=== PATIENT | female | born 1940 | race Caucasian/White ===

== ENCOUNTER 2017-04-16 07:02 | Day surgery (SDC) | payer MEDICARE, BC ==
[2017-04-16] MEDS ORDERED: Propofol 200 MG/20 ML SDV ONE (07:26)
[2017-04-16] MEDS ORDERED: Midazolam 1 MG/ML 2 ML SDV ONE (07:26)
[2017-04-16] MEDS ORDERED: fentaNYL 100 MCG/2 ML SDV ONE (07:26)
[2017-04-16] MEDS ORDERED: Sodium Chloride 0.9% 1,000 ML IV SCH (08:00)
[2017-04-16 10:04] VITALS: BP 119/75
--- NOTE | 2017-04-16 14:31 | OR ---
DATE OF PROCEDURE: 04/16/2017 PROCEDURE: Colonoscopy. FINDINGS: 1. Diverticulosis, moderate. 2. No other gross abnormalities. COMPLICATIONS: None. 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 ANESTHESIA: MAC. PREOPERATIVE DIAGNOSIS: Screening colonoscopy. POSTOPERATIVE DIAGNOSIS: Screening colonoscopy. RISKS: Risks, benefits, alternatives, limitations including, but not limited to infection, bleeding, and perforation were explained to the patient. PROCEDURE IN DETAIL: The patient was placed in the left lateral decubitus position. A digital rectal exam was performed without abnormality. Scope was introduced and advanced atraumatically to the ileocecal valve. The scope was brought back to the ascending, transverse, descending colon, and retroflexed. The patient had diverticulosis, which was moderate, limited to sigmoid colon. No other abnormalities were noted. No old or new blood. The patient tolerated the procedure well. Star Miller MD /[id number]
== END 2017-04-16 10:39 | disposition home or self-care (01) ==
LOC: JP.SDS 07:02
PROVIDERS: ATTEND Surgery
DX: Z12.11 Encounter for screening for malignant neoplasm of colon (principal); K57.30 Diverticulosis of large intestine without perforation or abscess without bleeding; I10 Essential (primary) hypertension; K21.9 Gastro-esophageal reflux disease without esophagitis; F32.9 Major depressive disorder, single episode, unspecified; Z88.1 Allergy status to other antibiotic agents; Z88.2 Allergy status to sulfonamides
CPT/HCPCS: G0121; J2250; J2704; J3010; J7040

== ENCOUNTER 2021-06-06 12:19 | Emergency (ER) | payer MEDICARE ==
[2021-06-06 12:56] VITALS: BP 147/87; PULSE 82
[2021-06-06] MEDS ORDERED: Ketorolac 30 MG/ML SDV IM ONE (13:36)
--- NOTE | 2021-06-06 13:40 | EDM.PDOC ---
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 Has not followed up with her primary care. Has not done any physical therapy for this. She was hoping that she could have an MRI ordered today. Back Pain Score (Numeric/FACES): 0 - Related Data Allergies Allergy/AdvReac Type Severity Reaction Status Date / Time bacitracin Allergy Other Verified 06/06/21 13:09 [From Neosporin ([id number])] neomycin Allergy Other Verified 06/06/21 13:09 [From Neosporin ([id number])] polymyxin B Allergy Other Verified 06/06/21 13:09 [From Neosporin ([id number])] sulfamethoxazole Allergy Other Verified 06/06/21 13:09 Home Meds: Home Meds Aspirin 81 mg PO DAILY 04/14/17 [History] Loratadine [Claritin] 10 mg PO ASDIRECTED PRN 04/14/17 [History] Multivitamin with Minerals [Multiple Vitamin] 3 tab PO DAILY 04/14/17 [History] Triamcinolone Acetonide [Kenalog 0.1% Crm] 1 applic TOP BID PRN 04/14/17 [H istory] atenoloL [Tenormin] 25 mg PO DAILY 05/24/18 [History] Ascorbic Acid [Vitamin C] 1,000 mg PO DAILY 05/26/18 [History] Past Medical History HEENT History: Reports: Cataract, Impaired Vision Cardiovascular History: Reports: Hypertension Gastrointestinal History: Reports: Diverticulosis, GERD 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: , Spontaneous Musculoskeletal History: Reports: Back Pain, Chronic, Neck Pain, Chronic, Osteoarthritis Neurological History: Reports: Headaches, Chronic, Vertigo Psychiatric History: Reports: Depression Dermatologic History: Reports: Seborrheic Dermatitis - Infectious Disease History Infectious Disease History: Reports: Chicken Pox, Measles, Mumps - Past Surgical History GI Surgical History: Reports: Colonoscopy Neurological Surgical History: Reports: None Social & Family History - Family History Family Medical History: No Pertinent Family History HEENT: Reports: Cataract Cardiac: Reports: Heart Valve Replacement, Other (See Below) Respiratory: Reports: Other (See Below) Other Respiratory Family Hisory: emphysema GI: Reports: GERD OBGYN: Reports: Oncologic: Reports: Colon - Tobacco Use Tobacco Use Status *Q: Never Tobacco User Second Hand Smoke Exposure: No - Caffeine Use Caffeine Use: Reports: None - Recreational Drug Use Recreational Drug Use: No ED ROS GENERAL - Review of Systems Review Of Systems: See Below GI/Abdominal: Reports: No Symptoms Musculoskeletal: Reports: Back Pain Neurological: Reports: No Symptoms ED EXAM, UPPER BACK/NECK PAIN - Physical Exam Exam: See Below Exam Limited By: No Limitations General Appearance: Alert, WD/WN, No Apparent Distress Back Exam: Normal Inspection, Full Range of Motion, Muscle Spasm, Paraspinal Tenderness. No: CVA Tenderness (R), CVA Tenderness (L), Vertebral Tenderness Course - Vital Signs Last Recorded V/S: Last Vital Signs Temp 97.8 F 06/06/21 13:18 Pulse 82 06/06/21 13:18 Resp 16 06/06/21 13:18 BP 147/87 H 06/06/21 13:18 Pulse Ox 91 L 06/06/21 13:18 - Orders/Labs/Meds Meds: Medications Discontinued Medications Generic Name Dose Route Start Last Admin Trade Name Freq PRN Reason Stop Dose Admin Ketorolac Tromethamine 30 mg 06/06/21 13:36 Ketorolac 30 Mg/Ml Sdv IM 06/06/21 13:37 ONETIME ONE Departure - Departure Time of Disposition: 13:39 Disposition: Home, Self-Care 01 Condition: Fair Clinical Impression: Mid back pain - Discharge Information Instructions: Managing Chronic Back Pain Referrals: Trent Salgado MD [Primary Care Provider] - Additional Instructions: Try the Flexeril in combination with your bare for better pain control, please follow-up with your primary care in the next 3 to 5 days for reevaluation Sepsis Event Note (ED) - Evaluation Sepsis Screening Result: No Definite Risk - Focused Exam Vital Signs: Vital Signs Temp Pulse Resp BP Pulse Ox 06/06/21 13:18 97.8 F 82 16 147/87 H 91 L 06/06/21 12:55 97.8 F 82 16 147/87 H 91 L - Assessment/Plan Plan: Assessment Acuity = acute Site and laterality = mid back pain Etiology = unknown Manifestations = none Location of injury = Home Lab values = none Plan Try a 30 mg Toradol IM prescription written for Flexeril 10 mg 1 tab p.o. 3 times daily as needed total #15 of asked her to follow-up with her primary care for further evaluation of the back pain which may include an MRI and/or physical therapy This note was dictated using [employer] voice recognition software please call with any questions on syntax or grammar.
== END 2021-06-06 13:58 | disposition home or self-care (01) ==
LOC: JP.ED 12:19
DX: M54.6 Pain in thoracic spine (principal); I10 Essential (primary) hypertension; M19.90 Unspecified osteoarthritis, unspecified site; Z79.899 Other long term (current) drug therapy; Z88.1 Allergy status to other antibiotic agents; Z88.8 Allergy status to other drugs, medicaments and biological substances; Z79.82 Long term (current) use of aspirin
CPT/HCPCS: 96372; 99283; J1885

== ENCOUNTER 2021-10-16 07:04 | Day surgery (SDC) | payer MEDICARE ==
[~2021-10-16 07:04] MED LIST: Midazolam 1 MG/ML 2 ML SDV ONE; Propofol 200 MG/20 ML SDV ONE; fentaNYL 100 MCG/2 ML SDV ONE
[2021-10-16] MEDS ORDERED: Dextrose 5%-Lactated Ringers 1,000 ML IV SCH (07:30)
[2021-10-16 10:07] VITALS: BP 108/48; PULSE 55
== END 2021-10-16 10:13 | disposition home or self-care (01) ==
LOC: JP.SDS 07:04
PROVIDERS: ATTEND Surgery
DX: K52.832 Lymphocytic colitis (principal); K57.30 Diverticulosis of large intestine without perforation or abscess without bleeding; I10 Essential (primary) hypertension
CPT/HCPCS: 87046; 87177; 87209; 87493; 87899; 88305; 89055; J2250; J2704; J3010; J7121

== ENCOUNTER 2025-01-07 14:27 | Emergency (ER) | payer MEDICARE ==
[2025-01-07] MEDS: Acetaminophen 325 MG Tab PO ONE (15:37)
[2025-01-07] MEDS: Baclofen 10 MG Tab PO ONE (15:43)
[2025-01-07] MEDS: Acetaminophen/oxyCODONE 325-5 MG Tab PO ONE (15:43)
[2025-01-07] MEDS: Ketorolac 15 MG/ML SDV IM ONE (15:44)
[2025-01-07] MEDS: HYDROmorphone 0.5 MG/0.5 ML Syringe IM ONE (16:23)
[2025-01-07 16:54] VITALS: BP 111/55; PULSE 63
== END 2025-01-07 17:15 | disposition home or self-care (01) ==
LOC: JP.ED 14:27
DX: M48.54XA Collapsed vertebra, not elsewhere classified, thoracic region, initial encounter for fracture (principal); M54.6 Pain in thoracic spine; G89.29 Other chronic pain; I10 Essential (primary) hypertension; M19.90 Unspecified osteoarthritis, unspecified site; Z88.8 Allergy status to other drugs, medicaments and biological substances; Z79.82 Long term (current) use of aspirin; Z79.899 Other long term (current) drug therapy
CPT/HCPCS: 96372; 99283; 99284; A9270-GY; J1885

== ENCOUNTER 2025-01-11 06:33 | Emergency (ER) | payer MEDICARE ==
[2025-01-11 07:00] VITALS: BP 177/92; PULSE 88
[2025-01-11 08:12] LABS: BASOPHILS ABSOLUTE AUTO 0.04 K/uL (0.00-0.10); BASOPHILS PERCENT AUTO 0.6 % (0.1-1.3); EOSINOPHILS ABSOLUTE AUTO 0.08 K/uL (0.00-0.40); EOSINOPHILS PERCENT AUTO 1.2 % (0.0-5.4); HEMATOCRIT 44.1 % (34.3-46.0); HEMOGLOBIN 14.3 g/dL (11.2-15.5); IMMATURE GRAN PERCENT AUTO 0.3 % (0.0-0.7); LYMPHOCYTES ABSOLUTE AUTO 1.28 K/uL (0.8-3.3); LYMPHOCYTES PERCENT AUTO 18.4 % (11.4-47.7); MEAN CORPUSCULAR HEMOGLOBIN 30.8 pg (31.6-35.5); MEAN CORPUSCULAR HGB CONC 32.4 g/dL (31.6-35.5); MONOCYTES ABSOLUTE AUTO 0.63 K/uL (0.20-0.90); MONOCYTES PERCENT AUTO 9.1 % (3.3-12.6); NEUTROPHILS ABSOLUTE AUTO 4.89 K/uL (1.0-7.6); NEUTROPHILS PERCENT AUTO 70.4 % (40.0-78.1); PLATELET COUNT,PLT 277 K/uL (130-375); RED BLOOD CELL COUNT 4.64 M/uL (3.77-5.24); WHITE BLOOD CELL COUNT,WBC 6.9 K/uL (3.2-11.0)
[2025-01-11 08:29] LABS: IMMATURE GRAN ABSOLUTE AUTO 0.02 K/uL (0.00-0.23)
[2025-01-11 08:37] LABS: APPEARANCE,URINE CLEAR (CLEAR); BILIRUBIN,URINE NEGATIVE (NEGATIVE); COLOR,URINE YELLOW (YELLOW); GLUCOSE,URINE NEGATIVE (NEGATIVE); KETONES,URINE NEGATIVE (NEGATIVE); LEUKOCYTE ESTERASE,URINE NEGATIVE (NEGATIVE); NITRITE,URINE NEGATIVE (NEGATIVE); OCCULT BLOOD,URINE NEGATIVE (NEGATIVE); PH,URINE 5.5 (5.0-8.0); PROTEIN,URINE NEGATIVE (NEGATIVE); UROBILINOGEN,URINE 0.2 EU/dL (0.2-1.0)
[2025-01-11 08:40] LABS: AMORPHOUS SEDIMENT,URINE RARE; BACTERIA,URINE NOT SEEN; EPITHELIAL CELLS,URINE NOT SEEN; MUCUS,URINE NOT SEEN; RBC,URINE NOT SEEN (0-5); WBC,URINE NOT SEEN (0-5)
[2025-01-11 09:33] LABS: ALANINE AMINOTRANSFERASE,ALT 22 U/L (12-78); ALBUMIN 3.8 g/dL (3.4-5.0); ALKALINE PHOSPHATASE 79 U/L (46-116); ASPARTATE AMNIOTRANSFERASE,AST 22 U/L (15-37); BILIRUBIN TOTAL 0.6 mg/dL (0.2-1.0); BLOOD UREA NITROGEN,BUN 37 mg/dL (7-18); CALCIUM 9.8 mg/dL (8.5-10.1); CARBON DIOXIDE,CO2 23 mmol/L (21-32); CHLORIDE,CL 105 mmol/L (100-108); CREATININE 1.4 mg/dL (0.6-1.0); EST CRCL DRUG DOSING (CG) 22.25 mL/min; ESTIMATED GFR 38 mL/min (>60); GLUCOSE RANDOM 103 mg/dL (74-106); POTASSIUM,K 4.1 mmol/L (3.6-5.2); PROTEIN TOTAL,TP 7.8 g/dL (6.4-8.2); SODIUM,NA 139 mmol/L (140-148)
[2025-01-11 09:34] LABS: ANION GAP 15.1 mmol/L (5.0-14.0)
== END 2025-01-11 10:41 | disposition home or self-care (01) ==
LOC: JP.ED 06:33
DX: N28.9 Disorder of kidney and ureter, unspecified (principal); G89.29 Other chronic pain; R06.02 Shortness of breath; I10 Essential (primary) hypertension; K21.9 Gastro-esophageal reflux disease without esophagitis; Z88.1 Allergy status to other antibiotic agents; Z88.2 Allergy status to sulfonamides; Z79.899 Other long term (current) drug therapy
CPT/HCPCS: 36415; 71046; 71046-26; 80053; 81001; 83880; 85025; 85379; 93005; 93010; 99284